=== PATIENT | male | born 1960 | race Caucasian/White ===

== ENCOUNTER 2018-05-21 15:14 | Inpatient (IN) | payer OTHER ==
[~2018-05-21] VITALS: Ht 152.4 cm; Wt 56.7 kg
[2018-05-21 15:23] VITALS: BP 128/70
[2018-05-21] MEDS ORDERED: ceFAZolin 1,000 MG VIAL ONE (16:02)
[2018-05-21 16:13] LABS: BASOPHILS % (AUTO) 0.3 % (0.0-2.0); EOSINOPHILS # (AUTO) 0.2 K/uL (0-0.4); HEMATOCRIT 35.9 % (36-52); HEMOGLOBIN 11.8 g/dL (12.0-18.0); LYMPHOCYTES # (AUTO) 0.5 K/uL (2.0-11.5); LYMPHOCYTES % (AUTO) 14.1 % (20.5-51.1); MEAN CORPUSCULAR HEMOGLOBIN 29 pg (27-31); MEAN CORPUSCULAR HGB CONC 33 g/dL (33-37); MEAN CORPUSCULAR VOLUME 89.6 fL (80-94); MONOCYTES # (AUTO) 0.3 K/uL (0.8-1.0); MONOCYTES % (AUTO) 9.6 % (1.7-9.3); NEUTROPHILS # (AUTO) 2.3 K/uL (1.8-7.7); RED CELL DISTRIBUTION WIDTH 16.8 % (11.6-13.7); WHITE BLOOD COUNT (AUTO) 3.3 K/uL (4.8-10.8)
[2018-05-21 16:32] LABS: ALBUMIN 3.1 g/dL (3.4-5.0); ANION GAP 9.3 (8-16); CREATININE 0.8 mg/dL (0.7-1.3); POTASSIUM 3.3 mmol/L (3.5-5.1); TOTAL BILIRUBIN 1.2 mg/dL (0.0-1.0)
[2018-05-21 16:34] LABS: PROTHROMBIN TIME 12.1 secs (10.8-13.4)
[2018-05-21 16:56] LABS: PLATELET COUNT (AUTO) 38 K/uL (140-450)
[2018-05-21] MEDS ORDERED: MORPHINE SULFATE 4 MG/ML SYR IVP ONE (17:10)
[2018-05-21] MEDS ORDERED: ONDANSETRON 4 MG/2 ML VIAL IVP ONE (17:10)
[2018-05-21] MEDS ORDERED: DOCUSATE SODIUM 100 MG GELCAP PO PRN (19:50)
[2018-05-21] MEDS ORDERED: ONDANSETRON 4 MG/2 ML VIAL IM/IVP PRN (19:50)
[2018-05-21] MEDS ORDERED: ACETAMINOPHEN 325 MG TAB PO PRN (19:50)
[2018-05-21 20:22] LABS: CHOL/HDL RATIO 1.8 (1-4.5); FREE T4 (FREE THYROXINE) 1.07 ng/dL (0.76-1.46); MAGNESIUM 1.5 mg/dL (1.8-2.4); PHOSPHORUS 3.8 mg/dL (2.5-4.9)
[2018-05-21 20:30] VITALS: BP 129/86
[2018-05-21] MEDS: HYDROcodone/APAP 7.5/325 MG 1 TAB PO PRN (21:29)
[2018-05-21 22:10] LABS: THYROID STIMULATING HORMONE 3.07 uIU/mL (0.34-3.74)
[2018-05-21] MEDS ORDERED: MAGNESIUM OXIDE 400 MG TAB PO ONE (23:35)
[2018-05-22] VITALS: BP 110/57
[2018-05-22] MEDS: PIPER/TAZO 3.375GM/D5W PREMIX 50 ML IV SCH ×4 (00:30→20:12)
[2018-05-22] MEDS ORDERED: PIPERACILLIN/TAZOBACTAM 3.375 GM VIAL IV ONE ×2 (00:32→04:15)
[2018-05-22] MEDS ORDERED: NACL 0.9% 500 ML IV SCH (01:05)
[2018-05-22] MEDS ORDERED: INFLUENZA VIRUS VACCINE QUAD 0.5 ML SYR IMVAC PRN (02:25)
[2018-05-22] MEDS ORDERED: PNEUMOCOCCAL VACCINE 23 MCG/0.5 ML VIAL IMVAC SCH (02:25)
[2018-05-22 04:00] VITALS: BP 104/69
[2018-05-22] MEDS: HYDROcodone/APAP 7.5/325 MG 1 TAB PO PRN ×3 (04:22→20:12)
[2018-05-22] MEDS: NACL 0.9% 1,000 ML IV SCH ×2 (06:00→20:12)
[2018-05-22 07:06] LABS: ANION GAP 10.1 (8-16); CARBON DIOXIDE 27.4 mmol/L (21-32); CREATININE 1.1 mg/dL (0.7-1.3); POTASSIUM 3.5 mmol/L (3.5-5.1)
[2018-05-22 07:31] LABS: MAGNESIUM 1.7 mg/dL (1.8-2.4); PHOSPHORUS 4.5 mg/dL (2.5-4.9)
[2018-05-22 07:44] LABS: BASOPHILS % (AUTO) 0.7 % (0.0-2.0); EOSINOPHILS # (AUTO) 0.2 K/uL (0-0.4); EOSINOPHILS % (AUTO) 6.6 % (0.0-4.0); LYMPHOCYTES # (AUTO) 0.4 K/uL (2.0-11.5); MEAN CORPUSCULAR HEMOGLOBIN 30 pg (27-31); MEAN CORPUSCULAR HGB CONC 33 g/dL (33-37); MEAN CORPUSCULAR VOLUME 90.4 fL (80-94); MONOCYTES # (AUTO) 0.5 K/uL (0.8-1.0); MONOCYTES % (AUTO) 14.4 % (1.7-9.3); NEUTROPHILS # (AUTO) 2.4 K/uL (1.8-7.7); NEUTROPHILS % (AUTO) 67.3 % (42.2-75.2); RED BLOOD CELL COUNT(AUTO) 3.32 MIL/uL (4.20-6.10); RED CELL DISTRIBUTION WIDTH 16.9 % (11.6-13.7); WHITE BLOOD COUNT (AUTO) 3.5 K/uL (4.8-10.8)
[2018-05-22 08:00] VITALS: BP 106/57
[2018-05-22 08:29] LABS: PLATELET COUNT (AUTO) 32 K/uL (140-450)
[2018-05-22] MEDS: CALCIUM CARB/VIT-D 500 MG/200 IU 1 TAB PO SCH (08:31)
[2018-05-22] MEDS: MAGNESIUM OXIDE 400 MG TAB PO SCH (08:32)
[2018-05-22] MEDS ORDERED: MAGNESIUM OXIDE 400 MG TAB PO SCH (10:00)
[2018-05-22] MEDS: MORPHINE SULFATE 4 MG/ML SYR IVP PRN ×2 (10:42→20:28)
[2018-05-22 11:37] LABS: APPEARANCE,URINE HAZY (CLEAR); BILIRUBIN,URINE NEGATIVE (NEGATIVE); BLOOD, URINE 3+ (NEGATIVE); LEUKOCYTE ESTERASE ,URINE 2+ (NEGATIVE); NITRITE, URINE NEGATIVE (NEGATIVE); UGLUCOSE NEGATIVE (NEGATIVE)
[2018-05-22 11:39] LABS: COLOR,URINE AMBER (YELLOW)
[2018-05-22 11:47] LABS: BARBITURATE, URINE NEGATIVE ng/ml (NEG <=200); CANNABINOID, URINE NEGATIVE ng/mL (NEG <=50); COCAINE, URINE NEGATIVE ng/mL (NEG <=300); PHENCYCLIDINE SCREEN,URINE NEGATIVE ng/mL (NEG <=25); RBC,URINE 20-50 /HPF (0-5); WBC,URINE 20-60 /HPF (0-5)
[2018-05-22 11:51] LABS: BENZODIAZEPINE, URINE NEGATIVE ng/mL (NEG <=200); OPIATE, URINE POSITIVE ng/mL (NEG <=2000)
[2018-05-22 12:00] VITALS: BP 112/58
[2018-05-22] MEDS: NACL 0.9% IRR 250 ML BOTTLE IR SCH (12:29)
[2018-05-22 16:00] VITALS: BP 103/48
[2018-05-22] MEDS ORDERED: ALBUTEROL SULFATE/IPRATROPIU 3 ML SOL IH PRN ×2 (17:10→18:10)
[2018-05-22] MEDS: ALBUTEROL SULFATE/IPRATROPIU 3 ML SOL IH SCH (18:56)
[2018-05-22] MEDS ORDERED: ALBUTEROL SULFATE/IPRATROPIU 3 ML SOL IH SCH (19:00)
[2018-05-22 20:00] VITALS: BP 119/61
[2018-05-23] VITALS: BP 115/60
[2018-05-23] MEDS: ALBUTEROL SULFATE/IPRATROPIU 3 ML SOL IH SCH ×4 (01:57→19:17)
[2018-05-23 04:00] VITALS: BP 108/80
[2018-05-23] MEDS: PIPER/TAZO 3.375GM/D5W PREMIX 50 ML IV SCH ×3 (04:22→20:18)
[2018-05-23] MEDS: MORPHINE SULFATE 4 MG/ML SYR IVP PRN (04:23)
[2018-05-23] MEDS: NACL 0.9% 1,000 ML IV SCH (04:23)
[2018-05-23 06:21] LABS: T4 (THYROXINE) 7.8 ug/dL (4.5-12.0)
[2018-05-23 07:22] LABS: HEPATITIS A ANTIBODY IGM Negative (Negative); HEPATITIS B CORE AB TOTAL Negative (Negative); HEPATITIS B SURFACE ANTIBODY Non Reactive (.); HEPATITIS B SURFACE ANTIGEN Negative (Negative)
[2018-05-23 07:59] LABS: EOSINOPHILS # (AUTO) 0.2 K/uL (0-0.4)
[2018-05-23 08:00] VITALS: BP 133/73
[2018-05-23 08:16] LABS: HEMOGLOBIN 9.7 g/dL (12.0-18.0); LYMPHOCYTES # (AUTO) 0.4 K/uL (2.0-11.5); MONOCYTES # (AUTO) 0.5 K/uL (0.8-1.0); MONOCYTES % (AUTO) 13.6 % (1.7-9.3); NEUTROPHILS # (AUTO) 2.6 K/uL (1.8-7.7); RED BLOOD CELL COUNT(AUTO) 3.24 MIL/uL (4.20-6.10); WHITE BLOOD COUNT (AUTO) 3.7 K/uL (4.8-10.8)
[2018-05-23 08:20] LABS: BASOPHILS % (AUTO) 0.4 % (0.0-2.0); HEMATOCRIT 28.9 % (36-52); MEAN CORPUSCULAR HEMOGLOBIN 30 pg (27-31); MEAN CORPUSCULAR HGB CONC 34 g/dL (33-37); MEAN CORPUSCULAR VOLUME 89.2 fL (80-94); RED CELL DISTRIBUTION WIDTH 17.2 % (11.6-13.7)
[2018-05-23 08:25] LABS: PLATELET COUNT (AUTO) 40 K/uL (140-450)
[2018-05-23 08:30] LABS: ANION GAP 10.9 (8-16); CARBON DIOXIDE 25.3 mmol/L (21-32); POTASSIUM 4.2 mmol/L (3.5-5.1)
[2018-05-23] MEDS: CALCIUM CARB/VIT-D 500 MG/200 IU 1 TAB PO SCH (09:41)
[2018-05-23] MEDS: MAGNESIUM OXIDE 400 MG TAB PO SCH (09:41)
[2018-05-23] MEDS ORDERED: MUPIROCIN CA NASAL 2% 1GM TUBE NS SCH (10:30)
[2018-05-23] MEDS ORDERED: CHLORHEXADINE GLUC 2% CLOTH TP SCH (10:35)
[2018-05-23] MEDS ORDERED: MUPIROCIN 2% OINT 22 GM TUBE TP SCH (10:35)
[2018-05-23] MEDS: CHLORHEXADINE GLUC 2% CLOTH TP SCH (11:30)
[2018-05-23 16:00] VITALS: BP 162/75
[2018-05-23] MEDS: HYDROcodone/APAP 7.5/325 MG 1 TAB PO PRN (20:19)
[2018-05-24] VITALS: BP 132/71
[2018-05-24] MEDS: ALBUTEROL SULFATE/IPRATROPIU 3 ML SOL IH SCH ×4 (00:19→20:15)
[2018-05-24] MEDS: PIPER/TAZO 3.375GM/D5W PREMIX 50 ML IV SCH ×3 (04:25→21:42)
[2018-05-24] MEDS: NACL 0.9% 1,000 ML IV SCH (04:26)
[2018-05-24 07:54] VITALS: BP 139/70
[2018-05-24 08:13] LABS: HEMOGLOBIN 11.5 g/dL (12.0-18.0); RED BLOOD CELL COUNT(AUTO) 3.82 MIL/uL (4.20-6.10); WHITE BLOOD COUNT (AUTO) 3.4 K/uL (4.8-10.8)
[2018-05-24 08:14] LABS: HEMATOCRIT 34.8 % (36-52); LYMPHOCYTES % (AUTO) 11.5 % (20.5-51.1); MEAN CORPUSCULAR HEMOGLOBIN 30 pg (27-31); MEAN CORPUSCULAR HGB CONC 33 g/dL (33-37); MONOCYTES % (AUTO) 10.9 % (1.7-9.3); NEUTROPHILS % (AUTO) 72.4 % (42.2-75.2); RED CELL DISTRIBUTION WIDTH 17.1 % (11.6-13.7)
[2018-05-24 08:15] LABS: BASOPHILS % (AUTO) 0.4 % (0.0-2.0); EOSINOPHILS # (AUTO) 0.2 K/uL (0-0.4); EOSINOPHILS % (AUTO) 4.8 % (0.0-4.0); LYMPHOCYTES # (AUTO) 0.4 K/uL (2.0-11.5); MONOCYTES # (AUTO) 0.4 K/uL (0.8-1.0); NEUTROPHILS # (AUTO) 2.4 K/uL (1.8-7.7)
[2018-05-24 08:16] LABS: ANION GAP 8.2 (8-16); CARBON DIOXIDE 28.9 mmol/L (21-32); CREATININE 0.8 mg/dL (0.7-1.3); POTASSIUM 4.1 mmol/L (3.5-5.1)
[2018-05-24 08:17] LABS: PLATELET COUNT (AUTO) 44 K/uL (140-450)
[2018-05-24] MEDS: MAGNESIUM OXIDE 400 MG TAB PO SCH (09:18)
[2018-05-24] MEDS: CALCIUM CARB/VIT-D 500 MG/200 IU 1 TAB PO SCH (09:19)
[2018-05-24] MEDS: CHLORHEXADINE GLUC 2% CLOTH TP SCH (10:02)
[2018-05-24] MEDS: MUPIROCIN CA NASAL 2% 1GM TUBE NS SCH (10:02)
[2018-05-24] MEDS ORDERED: MAGNESIUM OXIDE 400 MG TAB PO SCH (14:30)
[2018-05-24] MEDS: HYDROcodone/APAP 7.5/325 MG 1 TAB PO PRN ×2 (15:22→21:45)
[2018-05-24 16:19] VITALS: BP 133/70
[2018-05-25] VITALS: BP 126/67
[2018-05-25] MEDS: PIPER/TAZO 3.375GM/D5W PREMIX 50 ML IV SCH ×2 (06:14→12:40)
[2018-05-25 07:41] LABS: BASOPHILS % (AUTO) 0.4 % (0.0-2.0); EOSINOPHILS # (AUTO) 0.4 K/uL (0-0.4); EOSINOPHILS % (AUTO) 7.7 % (0.0-4.0); HEMATOCRIT 33.4 % (36-52); HEMOGLOBIN 11.2 g/dL (12.0-18.0); LYMPHOCYTES # (AUTO) 0.4 K/uL (2.0-11.5); LYMPHOCYTES % (AUTO) 7.8 % (20.5-51.1); MEAN CORPUSCULAR HEMOGLOBIN 30 pg (27-31); MEAN CORPUSCULAR HGB CONC 33 g/dL (33-37); MEAN CORPUSCULAR VOLUME 90.4 fL (80-94); MONOCYTES # (AUTO) 0.8 K/uL (0.8-1.0); MONOCYTES % (AUTO) 13.9 % (1.7-9.3); NEUTROPHILS # (AUTO) 3.8 K/uL (1.8-7.7); NEUTROPHILS % (AUTO) 70.2 % (42.2-75.2); RED CELL DISTRIBUTION WIDTH 17.2 % (11.6-13.7); WHITE BLOOD COUNT (AUTO) 5.4 K/uL (4.8-10.8)
[2018-05-25 08:00] VITALS: BP 145/87
[2018-05-25 08:00] LABS: ANION GAP 12.4 (8-16); CARBON DIOXIDE 25.9 mmol/L (21-32); CREATININE 0.8 mg/dL (0.7-1.3); POTASSIUM 4.3 mmol/L (3.5-5.1)
[2018-05-25 09:39] LABS: PLATELET COUNT (AUTO) 45 K/uL (140-450)
[2018-05-25] MEDS: MUPIROCIN CA NASAL 2% 1GM TUBE NS SCH (09:47)
[2018-05-25] MEDS: CALCIUM CARB/VIT-D 500 MG/200 IU 1 TAB PO SCH (09:48)
[2018-05-25] MEDS: MAGNESIUM OXIDE 400 MG TAB PO SCH (09:48)
[2018-05-25] MEDS: ALBUTEROL SULFATE/IPRATROPIU 3 ML SOL IH SCH ×4 (09:50→20:04)
[2018-05-25] MEDS: CHLORHEXADINE GLUC 2% CLOTH TP SCH (10:30)
[2018-05-25] MEDS: NACL 0.9% 1,000 ML IV SCH (11:05)
[2018-05-25] MEDS: NACL 0.9% IRR 250 ML BOTTLE IR SCH (13:00)
[2018-05-25] MEDS: HYDROcodone/APAP 7.5/325 MG 1 TAB PO PRN (14:12)
[2018-05-25] MEDS ORDERED: BACTNA NS (15:01)
[2018-05-25] MEDS ORDERED: ACET-9529 PO (15:01)
[2018-05-25] MEDS ORDERED: CHLO118S2 TP (15:01)
[2018-05-25] MEDS ORDERED: PIPE1PDS20 IV (15:01)
[2018-05-25] MEDS ORDERED: ALBU0.0912 INH (15:02)
[2018-05-25] MEDS ORDERED: DOCU-299 PO (15:03)
[2018-05-25] MEDS ORDERED: VANC1PLA7 IV (15:43)
[2018-05-25] MEDS ORDERED: VANCOMYCIN PER PHARMACY MC PRN (15:45)
[2018-05-25 16:00] VITALS: BP 137/88
[2018-05-25] MEDS: VANCOMYCIN 750 MG in DEXTROSE 5% 250 ML IV SCH (17:43)
[2018-05-26] VITALS: BP 114/57
[2018-05-26] MEDS: ALBUTEROL SULFATE/IPRATROPIU 3 ML SOL IH SCH ×3 (01:00→13:10)
[2018-05-26] MEDS: VANCOMYCIN 750 MG in DEXTROSE 5% 250 ML IV SCH (04:41)
[2018-05-26] MEDS: NACL 0.9% 1,000 ML IV SCH (04:42)
[2018-05-26 08:00] VITALS: BP 143/85
[2018-05-26] MEDS: MAGNESIUM OXIDE 400 MG TAB PO SCH (09:33)
[2018-05-26] MEDS: CALCIUM CARB/VIT-D 500 MG/200 IU 1 TAB PO SCH (09:33)
[2018-05-26] MEDS: MUPIROCIN CA NASAL 2% 1GM TUBE NS SCH (09:47)
[2018-05-26] MEDS: CHLORHEXADINE GLUC 2% CLOTH TP SCH (10:30)
[2018-05-26 11:12] LABS: BASOPHILS % (AUTO) 0.4 % (0.0-2.0); EOSINOPHILS # (AUTO) 0.2 K/uL (0-0.4); EOSINOPHILS % (AUTO) 5.8 % (0.0-4.0); HEMATOCRIT 30.9 % (36-52); HEMOGLOBIN 10.2 g/dL (12.0-18.0); LYMPHOCYTES # (AUTO) 0.4 K/uL (2.0-11.5); LYMPHOCYTES % (AUTO) 12.1 % (20.5-51.1); MEAN CORPUSCULAR HEMOGLOBIN 30 pg (27-31); MEAN CORPUSCULAR HGB CONC 33 g/dL (33-37); MEAN CORPUSCULAR VOLUME 90.2 fL (80-94); MONOCYTES # (AUTO) 0.6 K/uL (0.8-1.0); MONOCYTES % (AUTO) 16.7 % (1.7-9.3); NEUTROPHILS # (AUTO) 2.4 K/uL (1.8-7.7); PLATELET COUNT (AUTO) 26 K/uL (140-450); RED BLOOD CELL COUNT(AUTO) 3.42 MIL/uL (4.20-6.10); RED CELL DISTRIBUTION WIDTH 17.4 % (11.6-13.7); WHITE BLOOD COUNT (AUTO) 3.7 K/uL (4.8-10.8)
[2018-05-26 11:24] LABS: ANION GAP 11.2 (8-16); CARBON DIOXIDE 25.6 mmol/L (21-32); CREATININE 0.7 mg/dL (0.7-1.3); POTASSIUM 3.8 mmol/L (3.5-5.1)
[2018-05-26] MEDS ORDERED: LIDOCAINE 1% 500 MG/50 ML VIAL INJ SCH (11:57)
[2018-05-26] MEDS: HYDROcodone/APAP 7.5/325 MG 1 TAB PO PRN (12:01)
[2018-05-26] MEDS ORDERED: LIDOCAINE MPF 1% - 5 mL VIAL 5 ML ONE (12:18)
[2018-05-26] MEDS: MORPHINE SULFATE 4 MG/ML SYR IVP PRN (12:30)
[2018-05-26] MEDS ORDERED: MORPHINE SULFATE 4 MG/ML SYR IVP SCH (13:00)
[2018-05-26] MEDS ORDERED: VANC750P9 IV (13:55)
== END 2018-05-26 16:10 | DRG 710 ==
LOC: MED 15:14 → MTU 19:52
PROVIDERS: ADMIT General Practice; ATTEND General Practice
PROC: 3E0234Z Introduction of Serum, Toxoid and Vaccine into Muscle, Percutaneous Approach (ICD-10-PCS; 2018-05-21)
PROC: 3E02340 Introduction of Influenza Vaccine into Muscle, Percutaneous Approach (ICD-10-PCS; 2018-05-22)
PROC: 0JDN0ZZ Extraction of Right Lower Leg Subcutaneous Tissue and Fascia, Open Approach (ICD-10-PCS; principal; 2018-05-26)
DX: A41.9 Sepsis, unspecified organism (principal); N17.0 Acute kidney failure with tubular necrosis; D61.818 Other pancytopenia; E44.0 Moderate protein-calorie malnutrition; E83.42 Hypomagnesemia; L03.115 Cellulitis of right lower limb; E83.51 Hypocalcemia; L97.919 Non-pressure chronic ulcer of unspecified part of right lower leg with unspecified severity; J44.9 Chronic obstructive pulmonary disease, unspecified; E78.2 Mixed hyperlipidemia; N12 Tubulo-interstitial nephritis, not specified as acute or chronic; F15.10 Other stimulant abuse, uncomplicated; Q78.0 Osteogenesis imperfecta; Z23 Encounter for immunization; Z90.49 Acquired absence of other specified parts of digestive tract; Z68.24 Body mass index [BMI] 24.0-24.9, adult; K74.60 Unspecified cirrhosis of liver
CPT/HCPCS: 36415; 71045; 71250; 73590; 74018; 80048; 80053; 80305; 81001; 82150; 83036; 83605; 83690; 83735; 83880; 84100; 84436; 84439; 84443; 84479; 85025; 85610; 85730; 86704; 86706; 86708; 86709; 86803; 87040; 87070; 87081; 87186; 87340; 90471; 90658; 90715; 93005; 94640; 96365; 96375; 97116; 97530; 99285; J0690; J2001; J2270; J2405; J2543; J3370; J7030; J7060; J7620; Q0092

== ENCOUNTER 2018-06-17 16:26 | Inpatient (IN) | payer OTHER ==
[~2018-06-17] VITALS: Ht 152.4 cm; Wt 61.7 kg
[~2018-06-17 16:26] MED LIST: ACET-9529 PO; ALBU0.0912 INH; BACTNA NS; CHLO118S2 TP; DOCU-299 PO; VANC750P9 IV
[2018-06-17 16:35] VITALS: BP 135/65
[2018-06-17] MEDS ORDERED: ACETAMINOPHEN EXTRA STRENGTH 500 MG TAB ONE (16:47)
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
[2018-06-17] MEDS ORDERED: ACETAMINOPHEN 325 MG TAB PO ONE (17:10)
[2018-06-17] MEDS ORDERED: VANCOMYCIN 1,000 MG in DEXTROSE 5% 250 ML IV ONE (17:10)
[2018-06-17] MEDS ORDERED: NACL 0.9% 1,000 ML IV ONE (17:10)
[2018-06-17 17:18] LABS: MEAN CORPUSCULAR HEMOGLOBIN 28 pg (27-31); MEAN CORPUSCULAR HGB CONC 32 g/dL (33-37); MEAN CORPUSCULAR VOLUME 86.8 fL (80-94); PLATELET COUNT (AUTO) 59 K/uL (140-450); RED BLOOD CELL COUNT(AUTO) 3.92 MIL/uL (4.20-6.10); RED CELL DISTRIBUTION WIDTH 16.4 % (11.6-13.7); WHITE BLOOD COUNT (AUTO) 11.4 K/uL (4.8-10.8)
--- NOTE | 2018-06-17 17:24 | NUR ---
pt requesting pain medication; awaiting new orders; nad; will continue to monitor.
[2018-06-17 17:32] LABS: PROTHROMBIN TIME 12.9 secs (10.8-13.4)
[2018-06-17 17:35] LABS: ANION GAP 11.5 (8-16); CARBON DIOXIDE 27.8 mmol/L (21-32); POTASSIUM 4.3 mmol/L (3.5-5.1)
[2018-06-17] MEDS ORDERED: fentaNYL 0.05 MG/ML VIAL IVP ONE (17:35)
[2018-06-17 17:36] LABS: ALBUMIN 2.7 g/dL (3.4-5.0); CREATININE 0.9 mg/dL (0.7-1.3); TOTAL BILIRUBIN 1.3 mg/dL (0.0-1.0)
[2018-06-17] MEDS ORDERED: VANCOMYCIN 1,000 MG VIAL ONE (17:40)
[2018-06-17 17:42] LABS: EOSINOPHILS % (MANUAL) 1 % (0-4); MONOCYTES % (MANUAL) 5 % (5-12)
--- NOTE | 2018-06-17 18:05 | NUR ---
Oxygen applied at 2 L per minute via nasal cannula. 02 saturation 96% by pulse oximetry.
--- NOTE | 2018-06-17 19:09 | NUR ---
ASSUMED CARE OF PT FROM HOLDEN TEJEDA
--- NOTE | 2018-06-17 19:09 | NUR ---
Pt report given to Luis Carlos HATCH. Transfer of care at this time.
[2018-06-17] MEDS ORDERED: PIPERACILLIN/TAZOBACTAM 3.375 GM in DEXTROSE 5% 50 ML IV ONE (19:15)
[2018-06-17] MEDS ORDERED: NACL 0.9% 1,750 ML IV ONE (19:15)
[2018-06-17] MEDS ORDERED: PIPERACILLIN/TAZOBACTAM 3.375 GM VIAL IV ONE (19:36)
--- NOTE | 2018-06-17 20:25 | NUR ---
SPOKE TO ARCELIA [place] ALFRED, INFORMED SHE WOULD CALL BACK WITH STATUS OF ADMISSION
[2018-06-17] MEDS ORDERED: ACETAMINOPHEN EXTRA STRENGTH 500 MG TAB PO ONE (20:45)
[2018-06-17] MEDS ORDERED: MORPHINE SULFATE 4 MG/ML SYR IVP PRN (20:50)
[2018-06-17] MEDS ORDERED: DOCUSATE SODIUM 100 MG GELCAP PO PRN (20:50)
[2018-06-17] MEDS ORDERED: LORazepam 2 MG/ML VIAL IM/IVP PRN (20:50)
[2018-06-17] MEDS ORDERED: ZOLPIDEM 5 MG TAB PO PRN (20:50)
[2018-06-17] MEDS ORDERED: HYDROcodone/APAP 5/325 MG 1 TAB TAB PO PRN (20:50)
--- NOTE | 2018-06-17 21:11 | NUR ---
Pt transferred to Tele via BED 115.
[2018-06-17 21:15] VITALS: BP 85/45
--- NOTE | 2018-06-17 21:15 | NUR ---
RECEIVED REPORT FROM ER NURSE AT BEDSIDE FOR CONTINUITY OF CARE. PT AAOX4. PT IV NOTED VAHID 20G NS WIDE OPEN. NO SOB NO S/S OF DISTRESS ON 2L NC. BED LOWERED PT ORIENTED TO ROOM. ON CONTACT PRECAUTIONS HX: MRSA OF THE WOUND. PT SKIN IS NOT INTACT D/T LLE CELLULITIS OPEN WOUND PICTURE IN CHART.
--- NOTE | 2018-06-17 21:27 | NUR ---
Patient will be admitted to care of DR BATISTA. Admited to TELE. Will go to [id number]. Belongings list completed. Report to HOLDEN DOWELL.
[2018-06-17 21:53] LABS: CHOL/HDL RATIO 2.1 (1-4.5); FREE T4 (FREE THYROXINE) 1.03 ng/dL (0.76-1.46); MAGNESIUM 1.5 mg/dL (1.8-2.4); PHOSPHORUS 2.4 mg/dL (2.5-4.9); THYROID STIMULATING HORMONE 1.59 uIU/mL (0.34-3.74)
[2018-06-17] MEDS: NACL 0.9% 1,000 ML IV SCH (22:14)
[2018-06-18] VITALS: BP 100/67
[2018-06-18] MEDS: TAMSULOSIN 0.4 MG CAP PO SCH ×2 (02:40→09:15)
[2018-06-18 04:00] VITALS: BP 105/69
[2018-06-18] MEDS: NACL 0.9% 1,000 ML IV SCH ×2 (05:28→12:14)
[2018-06-18] MEDS: PIPER/TAZO 3.375GM/D5W PREMIX 50 ML IV SCH ×3 (05:28→20:15)
[2018-06-18] MEDS ORDERED: PIPERACILLIN/TAZOBACTAM 3.375 GM VIAL IV ONE (05:29)
[2018-06-18] MEDS ORDERED: VANCOMYCIN PER PHARMACY MC PRN (05:35)
[2018-06-18] MEDS: SODIUM PHOS / POTASSIUM PHOS 1 PKT PDR PO SCH ×3 (06:14→16:30)
[2018-06-18] MEDS: ONDANSETRON 4 MG/2 ML VIAL IM/IVP PRN (06:15)
[2018-06-18 06:18] LABS: BASOPHILS % (AUTO) 0.1 % (0.0-2.0); EOSINOPHILS % (AUTO) 0.1 % (0.0-4.0); HEMATOCRIT 28.5 % (36-52); HEMOGLOBIN 9.4 g/dL (12.0-18.0); LYMPHOCYTES # (AUTO) 0.2 K/uL (2.0-11.5); MEAN CORPUSCULAR HEMOGLOBIN 29 pg (27-31); MEAN CORPUSCULAR HGB CONC 33 g/dL (33-37); MEAN CORPUSCULAR VOLUME 87.3 fL (80-94); MONOCYTES # (AUTO) 0.4 K/uL (0.8-1.0); MONOCYTES % (AUTO) 4.7 % (1.7-9.3); NEUTROPHILS # (AUTO) 7.6 K/uL (1.8-7.7); NEUTROPHILS % (AUTO) 93.1 % (42.2-75.2); RED BLOOD CELL COUNT(AUTO) 3.26 MIL/uL (4.20-6.10); RED CELL DISTRIBUTION WIDTH 16.2 % (11.6-13.7); WHITE BLOOD COUNT (AUTO) 8.2 K/uL (4.8-10.8)
--- NOTE | 2018-06-18 07:15 | NUR ---
RECEIVED REPORT FROM AIRCRAFT WORKER NURSE AT BEDSIDE. PT SLEEPING, ROUSED BY NAME, OX4. IV NOTED VAHID 20G PATENT AND INTACT, RUNNING NS AT 130ML/HR. NO SOB NO S/S OF DISTRESS NOTED ON 2L O2 NC. BED IN LOWEST POSITION. ON CONTACT PRECAUTIONS HX: MRSA OF THE WOUND. RLE CELLULITIS OPEN WOUND, DRESSING INTACT AND DRY. ON TELE. WILL CONTINUE TO MONITOR.
--- NOTE | 2018-06-18 07:15 | NUR ---
ENDORSED REPORT TO DAYSHIFT NURSE AT BEDSIDE FOR CONTINUITY CARE.
[2018-06-18 07:45] LABS: PLATELET COUNT (AUTO) 60 K/uL (140-450)
[2018-06-18 08:00] VITALS: BP 119/64
[2018-06-18 08:20] LABS: APPEARANCE,URINE CLOUDY (CLEAR); COLOR,URINE YELLOW (YELLOW)
[2018-06-18 08:22] LABS: BILIRUBIN,URINE NEGATIVE (NEGATIVE); BLOOD, URINE 3+ (NEGATIVE); LEUKOCYTE ESTERASE ,URINE 3+ (NEGATIVE); NITRITE, URINE NEGATIVE (NEGATIVE); UGLUCOSE NEGATIVE (NEGATIVE)
--- NOTE | 2018-06-18 08:27 | NUR ---
PATIENT HAS BEEN SCREENED AND CATEGORIZED HIGH NUTRITION RISK. PATIENT WILL BE SEEN WITHIN 1-2 DAYS OF ADMISSION. 06/18/18-06/19/[address]
[2018-06-18 08:40] LABS: POTASSIUM 4.3 mmol/L (3.5-5.1)
[2018-06-18 08:41] LABS: ANION GAP 10.2 (8-16); CARBON DIOXIDE 27.1 mmol/L (21-32); CREATININE 0.9 mg/dL (0.7-1.3); MAGNESIUM 1.5 mg/dL (1.8-2.4); PHOSPHORUS 3.9 mg/dL (2.5-4.9)
[2018-06-18 08:53] LABS: RBC,URINE 11-20 (MOD) /HPF (0-5); WBC,URINE 80-100 /HPF (0-5)
[2018-06-18 08:55] LABS: YEAST,URINE Moderate /HPF (None Seen)
[2018-06-18] MEDS ORDERED: MAGNESIUM OXIDE 400 MG TAB PO SCH (09:00)
[2018-06-18] MEDS: LACTOBACILLUS RHAMNOSUS GG 1 EACH CAP PO SCH (09:14)
[2018-06-18] MEDS: MORPHINE SULFATE 4 MG/ML SYR IVP PRN ×3 (09:16→17:25)
[2018-06-18] MEDS ORDERED: MAG SULF 2000 MG/WATER PREMIX 50 ML IV SCH (09:30)
[2018-06-18 09:33] LABS: BARBITURATE, URINE NEGATIVE ng/ml (NEG <=200); BENZODIAZEPINE, URINE NEGATIVE ng/mL (NEG <=200); CANNABINOID, URINE NEGATIVE ng/mL (NEG <=50); COCAINE, URINE NEGATIVE ng/mL (NEG <=300); OPIATE, URINE NEGATIVE ng/mL (NEG <=2000); PHENCYCLIDINE SCREEN,URINE NEGATIVE ng/mL (NEG <=25)
--- NOTE | 2018-06-18 12:49 | NUR ---
06/18/18 RD INITIAL ASSESSMENT COMPLETED PLEASE REFER TO NUTRITION ASSESSMENT UNDER CARE ACTIVITY FOR ESTIMATED NUTRITIONAL NEEDS. 1. RECOMMEND MECHANICAL SOFT DIET 2. RECOMMEND VITAMIN C 1000 MG BID AND ZINC 220 MG QD TO AID IN WOUND HEALING 3. RECOMMEND ENSURE BID TO AID IN MALNUTRITION 4. RD TO FOLLOW UP ON ADEQUATE PO INTAKE 5. RD TO FOLLOW-UP 3-5 DAYS, MODERATE RISK LIZZIE SANFORD, RD
[2018-06-18] MEDS: ACETAMINOPHEN 325 MG TAB PO PRN (12:56)
--- NOTE | 2018-06-18 13:10 | NUR ---
TEMP CHECKED 100.6, PT EATING LUNCH, APPEARS TO BE TACHYPNEA 30/MIN. GIVEN TYLENOL AND ICE PACK TO NECK. CHECKED PT'S O2 SAT 92% ON 2L O2 NC. INCREASED TO 3L. HOB 45 DEG.
--- NOTE | 2018-06-18 13:18 | NUR ---
NOTIFIED DR PIKE AND DR MAXWELL HAS SEEN PT. RT ORDERS PLACED. CALLED RT JAMESON. VITALS BP 123/70, HR 120, 96%, MORPHINE GIVEN FOR BACK PAIN.
--- NOTE | 2018-06-18 13:45 | NUR ---
PLACED PT BACK ON TELE MONITORING. WILL CONTINUE TO MONITOR.
[2018-06-18] MEDS ORDERED: ALBUTEROL SULFATE/IPRATROPIU 3 ML SOL IH ONE (13:54)
[2018-06-18] MEDS ORDERED: FUROSEMIDE 20 MG/2 ML VIAL IVP SCH (14:00)
--- NOTE | 2018-06-18 14:00 | NUR ---
WOUND CARE EVALUATION NOTE: REASON FOR EVALUATION: RLE WOUND SKIN ASSESSMENT DONE WITH THIS 58Y/O MALE PT ADMITTED TO [facility] WITH INITIAL DX OF SEPSIS.PT. SKIN IS WARM AND DRY, BLE NO HAIR GROWTH, +1 EDEMA TO RIGHT LOWER LEG. BILATERAL DORSAL PEDAL PULSES PRESENT AND NORMAL. CAPILLARY REFILLED < 2 SEC. X 10 TOES. PLAN OF CARE DISCUSSED WITH PRIMARY RN AND PT. PT. VERBALIZING UNDERSTANDING. INTEGUMENTARY: -LLE DRY SKIN WITH DARK PIGMENTATION DRY AND SCALY -RLE CELLULITIS WITH ERYTHEMA AND +1 EDEMA, MULTIPLE PARTIAL THICKNESS LOSS OF SKIN, WOUND BEDS ARE SCATTERED WITH YELLOW SLOUGH, LARGEST TO HEIN AREA 3X3CM, AND SMALLEST 1.5X1 DRY BROWN SCAB, ALFRED-WOUND SKIN INTACT WITH ERYTHEMA, MODERATE AMOUNT OF PURULENT DRAINAGE, PAIN 3/10 RECOMMENDATIONS: -CLEANSE RLE CELLULITIS OPEN WOUNDS WITH NS. PAT DRY , APPLY ALGINATE DRESSING AND COVER WITH DRY DRESSING CHANGE QOD -OFFLOAD BILATERAL HEELS BY PLACING PILLOWS UNDER CALVES UNLESS OTHERWISE CONTRAINDICATED -PRESSURE REDISTRIBUTION SURFACE THERAPY -TURN AND REPOSITION Q2H, OFFLOAD SACRALCOCCYX BY TURNING RIGHT AND LEFT -CONTINUE TO FOLLOW RD RECOMMENDATIONS ALL ABOVE RECOMMENDATIONS DISCUSSED WITH PRIMARY RN AND WILL FOLLOW UP PT Q7-10 DAYS. PLEASE CONTACT WOUND CARE NURSE FOR ANY QUESTION.
[2018-06-18 16:00] VITALS: BP 108/57
[2018-06-18] MEDS: VANCOMYCIN 500 MG in DEXTROSE 5% 100 ML IV SCH (17:48)
--- NOTE | 2018-06-18 19:00 | NUR ---
PT IS ON 3L O2, O2 SAT 96%. NO S/S OF ACUTE DISTRESS NOTED. Addendum: 06/18/18 at 1946 by Efrain Miramontes RN NASAL CANNULA.
--- NOTE | 2018-06-18 19:20 | NUR ---
RECEIVED REPORT FROM DAY SHIFT NURSE, KAITY, AT PT BEDSIDE. PT IS ASLEEP IN BED, EASILY AROUSABLE. PT IS ON NC 3L WITH RESPIRATIONS EVEN AND UNLABORED. IV ACCESS IN VAHID 20G WITH IVF RUNNING PER MD ORDERS. IV IS PATENT AND INTACT. PT SKIN IS INTACT. NO C/O PAIN AT THIS TIME. BED IS LOCKED, LOW POSITION, WITH SIDE RAILS UP X2. BOARD UPDATED. CALL LIGHT WITHIN REACH. WILL CONTINUE TO MONITOR PT. Addendum: 06/18/18 at 2039 by Lorraine Willams RN RLE CELLULITIS RLE WITH DRESSING INTACT AND DRY.
--- NOTE | 2018-06-18 19:20 | NUR ---
ENDORSED REPORT TO LAYER OFF NURSE AT BEDSIDE FOR CONTINUITY CARE.
[2018-06-18 20:00] VITALS: BP 118/75
--- NOTE | 2018-06-18 20:09 | NUR ---
RT AT PT BEDSIDE.
[2018-06-18] MEDS: ASCORBIC ACID 500 MG TAB PO SCH (20:15)
--- NOTE | 2018-06-18 20:16 | NUR ---
ADMINISTERED SCHEDULED MEDICATIONS. PT TOLERATED WELL. NO SIGNS OR SYMPTOMS OF DISTRESS. WILL CONTINUE TO MONITOR.
--- NOTE | 2018-06-18 21:55 | NUR ---
CALLED DR. ELIZALDE TO REPORT LAB RESULTS OF LEG CULTURE POSITIVE FOR STREPTOCOCCUS PYOGENES GRP A.
[2018-06-19] VITALS (7 sets, daily range): BP systolic 117–144; BP diastolic 51–79
--- NOTE | 2018-06-19 00:10 | NUR ---
PT ASLEEP IN BED. NO SIGNS OR SYMPTOMS OF DISTRESS. WILL CONTINUE TO MONITOR.
[2018-06-19] MEDS: ACETAMINOPHEN 325 MG TAB PO PRN (01:26)
--- NOTE | 2018-06-19 01:27 | NUR ---
TYLENOL GIVEN FOR TEMPERATURE OF 101.6. PT TOLERATED WELL. NO SIGNS OR SYMPTOMS OF DISTRESS. WILL CONTINUE TO MONITOR.
[2018-06-19] MEDS: ONDANSETRON 4 MG/2 ML VIAL IM/IVP PRN (01:34)
--- NOTE | 2018-06-19 01:34 | NUR ---
PT C/O NAUSEA. ZOFRAN GIVEN. PT TOLERATED WELL. NO S/S OF DISTRESS. WILL CONTINUE TO MONITOR.
[2018-06-19] MEDS ORDERED: DILTIAZEM 25 MG/5 ML VIAL IVP ONE ×2 (02:20→20:15)
--- NOTE | 2018-06-19 02:20 | NUR ---
PT TEMPERATURE NOW 100.5. INFORMED DR ELIZALDE OF PT HR 130-150. ORDERS TO COME.
--- NOTE | 2018-06-19 02:40 | NUR ---
ADMINISTERED ORDERED DILTIAZEM. ASSISTED PT UP TO RESTROOM. PT TOLERATED WELL. NO SIGNS OR SYMPTOMS OF DISTRESS. WILL CONTINUE TO MONITOR.
[2018-06-19] MEDS: NACL 0.9% 1,000 ML IV SCH ×2 (03:04→10:16)
[2018-06-19] MEDS: PIPER/TAZO 3.375GM/D5W PREMIX 50 ML IV SCH ×2 (05:09→12:52)
--- NOTE | 2018-06-19 05:09 | NUR ---
ADMINISTERED SCHEDULED MEDICATION. PT SLEEPING IN BED COMFORTABLY. TEMPERATURE IS 98.6. NO SIGNS OR SYMPTOMS OF DISTRESS. WILL CONTINUE TO MONITOR.
[2018-06-19] MEDS: SODIUM PHOS / POTASSIUM PHOS 1 PKT PDR PO SCH ×2 (06:37→12:52)
[2018-06-19] MEDS: VANCOMYCIN 500 MG in DEXTROSE 5% 100 ML IV SCH ×2 (06:37→18:03)
--- NOTE | 2018-06-19 06:37 | NUR ---
ADMINISTERED SCHEDULED MEDICATIONS PT TOLERATED WELL. NO S/S OF DISTRESS. WILL CONTINUE TO MONITOR.
--- NOTE | 2018-06-19 07:06 | NUR ---
ENDORSED PT TO DAY SHIFT NURSE FOR CONTINUITY OF CARE. PT IN STABLE CONDITION.
--- NOTE | 2018-06-19 07:10 | NUR ---
RECEIVED REPORT FROM PATIENT ACCESS NURSE AT BEDSIDE. PT SLEEPING, ROUSED BY NAME, OX4. IV NOTED VAHID 20G PATENT AND INTACT, RUNNING NS AT 60ML/HR. NO S/S OF DISTRESS NOTED ON 2L O2 NC. RR 20/MIN. BED IN LOWEST POSITION. ON CONTACT PRECAUTIONS POSITIVE BLOOD CULTURE AND POSITIVE WOUND CULTURE. RLE CELLULITIS OPEN WOUND, DRESSING INTACT AND DRY. ON TELE. CALL LIGHT WITHIN REACH. WILL CONTINUE TO MONITOR.
[2018-06-19 07:13] LABS: BASOPHILS % (AUTO) 0.4 % (0.0-2.0); EOSINOPHILS # (AUTO) 0.1 K/uL (0-0.4); EOSINOPHILS % (AUTO) 3.6 % (0.0-4.0); HEMATOCRIT 24.2 % (36-52); LYMPHOCYTES # (AUTO) 0.3 K/uL (2.0-11.5); LYMPHOCYTES % (AUTO) 8.5 % (20.5-51.1); MEAN CORPUSCULAR HEMOGLOBIN 28 pg (27-31); MEAN CORPUSCULAR HGB CONC 33 g/dL (33-37); MEAN CORPUSCULAR VOLUME 85.9 fL (80-94); MONOCYTES # (AUTO) 0.5 K/uL (0.8-1.0); MONOCYTES % (AUTO) 12.1 % (1.7-9.3); NEUTROPHILS # (AUTO) 3.1 K/uL (1.8-7.7); NEUTROPHILS % (AUTO) 75.4 % (42.2-75.2); PLATELET COUNT (AUTO) 32 K/uL (140-450); RED BLOOD CELL COUNT(AUTO) 2.81 MIL/uL (4.20-6.10); RED CELL DISTRIBUTION WIDTH 16.2 % (11.6-13.7); WHITE BLOOD COUNT (AUTO) 4.1 K/uL (4.8-10.8)
--- NOTE | 2018-06-19 08:00 | NUR ---
O2 SAT 95%, DECREASED O2 TO 2L VIA NC. NO S/S OF ACUTE DISTRESS AT THIS TIME.
[2018-06-19] MEDS: ZINC SULF 220 MG CAP PO SCH (09:34)
[2018-06-19] MEDS: LACTOBACILLUS RHAMNOSUS GG 1 EACH CAP PO SCH (09:34)
[2018-06-19] MEDS: TAMSULOSIN 0.4 MG CAP PO SCH (09:34)
[2018-06-19] MEDS: ASCORBIC ACID 500 MG TAB PO SCH ×2 (09:34→21:25)
[2018-06-19 10:08] LABS: ANION GAP 7.3 (8-16); CARBON DIOXIDE 26.3 mmol/L (21-32); POTASSIUM 3.6 mmol/L (3.5-5.1)
--- NOTE | 2018-06-19 12:26 | NUR ---
Order for SNF placement faxed to [facility] [phone]. Left a message for Portia [phone] to call me back.
--- NOTE | 2018-06-19 12:30 | NUR ---
Wound care eval notes faxed to [facility]) [phone]. Pt eval still pending.
--- NOTE | 2018-06-19 12:30 | NUR ---
PT EATING LUNCH, MIN ASSISTANCE PROVIDED. NO S/S OF ACUTE DISTRESS AT THIS TIME.
[2018-06-19] MEDS: MORPHINE SULFATE 4 MG/ML SYR IVP PRN ×2 (13:07→21:34)
--- NOTE | 2018-06-19 13:08 | NUR ---
Spoke with Portia from [facility] for SNF placement. Faxed to [facility] for SNF placement.
--- NOTE | 2018-06-19 15:28 | NUR ---
Complex Case Manager Note: I faxed inquiry to [facility]. Per Mena from [facility], they need final micro results. Per case sealer Jessica, final micro results are pending at this time. Mena stated she will follow up with JOSELO Tran tomorrow 06/20/18.
--- NOTE | 2018-06-19 15:30 | NUR ---
Faxed to [facility] [phone] PT. joe. Spoke with Portia from [facility] [phone], [facility] is contracted with [facility]. Wound cultures still pending. Once results are received, RIOS Tran will follow up with [facility] for placement.
--- NOTE | 2018-06-19 15:43 | NUR ---
Per Portia from [facility],their weekend casework manager can be contacted [phone]. Will endorsed this to RIOS Tran.
--- NOTE | 2018-06-19 16:50 | NUR ---
REPORTED TO DR PIKE, PT HR 142, WILL GIVE MORPHINE FOR PAIN. DR PIKE SAID WILL INCREASE THE FREQ OF MORPHINE. Addendum: 06/19/18 at 1726 by Efrain Miramontes RN INCREASED TO Q3H
[2018-06-19] MEDS ORDERED: NITROGLYCERIN 0.4 MG TAB SL ONE (17:05)
--- NOTE | 2018-06-19 17:05 | NUR ---
REPORTED DR PIKE PT C/O ABD PAIN AND HAD DIARRHEA TODAY, BLACK LIQ STOOL. DR PIKE ASSESSED THE PT. OCCULT BLOOD WAS DONE AT BEDSIDE. Addendum: 06/19/18 at 1931 by Efrain Miramontes RN OCCULT BLOOD POSITIVE
[2018-06-19] MEDS ORDERED: MORPHINE SULFATE 4 MG/ML SYR IVP PRN (17:10)
[2018-06-19] MEDS ORDERED: LIDOCAINE VISCOUS 2% 20 ML UDC PO SCH (18:00)
[2018-06-19] MEDS ORDERED: PANTOPRAZOLE 40 MG INJ VIAL IVP SCH (18:00)
[2018-06-19] MEDS ORDERED: ALUMINUM HYD/MAG/SIMETHICONE 30 ML UDC PO SCH (18:00)
[2018-06-19] MEDS ORDERED: DICYCLOMINE HCL LIQUID 10 MG/5 ML UDC PO SCH (18:00)
[2018-06-19 18:36] LABS: HEMOGLOBIN 9.2 g/dL (12.0-18.0)
[2018-06-19] MEDS: guaiFENesin DM 200/20 MG-10 ML 10 ML UDC PO SCH ×2 (18:37→23:54)
--- NOTE | 2018-06-19 19:10 | NUR ---
ENDORSED PT TO GROUNDS SUPERVISOR RN. PT IN STABLE CONDITION.
--- NOTE | 2018-06-19 19:20 | NUR ---
RECEIVED REPORT FROM DAY SHIFT NURSE, KAITY, AT PT BEDSIDE. PT IS ASLEEP IN BED, EASILY AROUSABLE. PT IS ON NC 2L WITH RESPIRATIONS EVEN AND UNLABORED. IV ACCESS IN VAHID 20G WITH IVF RUNNING PER MD ORDERS. IV IS PATENT AND INTACT. PT HAS RLE CELLULITIS. NO C/O PAIN AT THIS TIME. BED IS LOCKED, LOW POSITION, WITH SIDE RAILS UP X2. BOARD UPDATED. CALL LIGHT WITHIN REACH. WILL CONTINUE TO MONITOR PT.
--- NOTE | 2018-06-19 20:10 | NUR ---
US BEING DONE AT PT BEDSIDE.
--- NOTE | 2018-06-19 21:26 | NUR ---
STOOL SAMPLE COLLECTED. ADMINISTERED SCHEDULED MEDICATIONS. PT TOLERATED WELL. NO SIGNS OR SYMPTOMS OF DISTRESS. WILL CONTINUE TO MONITOR.
--- NOTE | 2018-06-19 21:34 | NUR ---
PT C/O ABDOMINAL PAIN. MORPHINE GIVEN. PT TOLERATED WELL. NO SIGNS OR SYMPTOMS OF DISTRESS. WILL CONTINUE TO MONITOR.
[2018-06-19] MEDS ORDERED: cefTRIAXone 1,000 MG VIAL ONE (21:52)
[2018-06-19] MEDS ORDERED: CLINDAMYCIN 600 MG/4 ML VIAL ONE (21:56)
[2018-06-19] MEDS: FLUCONAZOLE 200 MG/NS PREMIX 100 ML IV SCH (21:56)
[2018-06-19] MEDS: CLINDAMYCIN 600 MG in DEXTROSE 5% 50 ML IV SCH (21:58)
--- NOTE | 2018-06-19 21:58 | NUR ---
ADMINISTERED ORDERED ANTIBIOTICS. PT RESTING COMFORTABLY IN BED. NO SIGNS OR SYMPTOMS OF DISTRESS. WILL CONTINUE TO MONITOR.
--- NOTE | 2018-06-19 23:54 | NUR ---
ADMINISTERED SCHEDULED MEDICATION. PT RESTING IN BED COMFORTABLY. NO SIGNS OR SYMPTOMS OF DISTRESS. WILL CONTINUE TO MONITOR.
[2018-06-20] VITALS: BP 118/75
[2018-06-20 00:46] LABS: HEMATOCRIT 23.6 % (36-52); HEMOGLOBIN 7.7 g/dL (12.0-18.0)
--- NOTE | 2018-06-20 01:58 | NUR ---
PT ASLEEP IN BED. NO SIGNS OR SYMPTOMS OF DISTRESS. WILL CONTINUE TO MONITOR.
[2018-06-20] MEDS: MORPHINE SULFATE 4 MG/ML SYR IVP PRN ×4 (02:41→20:37)
--- NOTE | 2018-06-20 02:41 | NUR ---
PT C/O PAIN, MORPHINE GIVEN. PT TOLERATED WELL. NO S/S OF DISTRESS. WILL CONTINUE TO MONITOR.
--- NOTE | 2018-06-20 03:41 | NUR ---
PT NOW ASLEEP IN BED. NO SIGNS OR SYMPTOMS OF DISTRESS. WILL CONTINUE TO MONITOR.
[2018-06-20 04:00] VITALS: BP 115/63
[2018-06-20] MEDS: guaiFENesin DM 200/20 MG-10 ML 10 ML UDC PO SCH ×3 (05:10→17:19)
[2018-06-20] MEDS: CLINDAMYCIN 600 MG in DEXTROSE 5% 50 ML IV SCH ×3 (05:10→20:36)
[2018-06-20] MEDS ORDERED: CLINDAMYCIN 600 MG/4 ML VIAL ONE (05:11)
--- NOTE | 2018-06-20 05:11 | NUR ---
ADMINISTERED SCHEDULED MEDICATIONS. PT RESTING COMFORTABLY IN BED. NO SIGNS OR SYMPTOMS OF DISTRESS. WILL CONTINUE TO MONITOR.
[2018-06-20] MEDS: NACL 0.9% 1,000 ML IV SCH (05:55)
--- NOTE | 2018-06-20 05:56 | NUR ---
NEW BAG OF IVF STARTED.
--- NOTE | 2018-06-20 07:11 | NUR ---
ENDORSED PT TO DAY SHIFT NURSE FOR CONTINUITY OF CARE. PT IN STABLE CONDITION.
[2018-06-20 07:15] LABS: FOLIC ACID 13.4 ng/mL (>3.0)
--- NOTE | 2018-06-20 07:15 | NUR ---
RECEIVED BEDSIDE REPORT FROM COMMERCIAL RELIEF DRIVER RN. PT SLEEPING IN BED, DROWSY, BUT AROUSABLE BY VOICE. AOX4, NO S/S OF DISTRESS NOTED AT THIS TIME. NO C/O PAIN OR DISCOMFORT AT THIS TIME. RLE CELLULITIS, DRESSING C/D/I. IV SITE PATENT AND ASYMPTOMATIC, INFUSING IVF PER MD ORDERS. PT ON BEDREST WITH BRP. WILL HOLD BREAKFAST UNTIL US ABDOMEN COMPLETED. ALL SAFETY PRECAUTIONS IN PLACE, WILL CONTINUE TO MONITOR.
[2018-06-20 08:00] VITALS: BP 110/69
[2018-06-20 08:08] LABS: HEMATOCRIT 21.8 % (36-52); HEMOGLOBIN 7.1 g/dL (12.0-18.0)
[2018-06-20] MEDS: TAMSULOSIN 0.4 MG CAP PO SCH (08:49)
[2018-06-20] MEDS: ASCORBIC ACID 500 MG TAB PO SCH ×2 (08:49→20:37)
[2018-06-20] MEDS: ZINC SULF 220 MG CAP PO SCH (08:49)
[2018-06-20] MEDS: LACTOBACILLUS RHAMNOSUS GG 1 EACH CAP PO SCH (08:49)
[2018-06-20] MEDS: PANTOPRAZOLE 40 MG INJ VIAL IVP SCH (08:50)
--- NOTE | 2018-06-20 09:02 | NUR ---
ADMINISTERED SCHEDULED MEDICATIONS. PT AMBULATED TO BATHROOM WITHOUT ASSIST. PT HAVING ANOTHER EPISODE OF DIARRHEA.
[2018-06-20] MEDS: ALBUTEROL SULFATE/IPRATROPIU 3 ML SOL IH PRN (10:02)
[2018-06-20 12:00] VITALS: BP 118/64
--- NOTE | 2018-06-20 13:20 | NUR ---
Fitter Up Notes: I attempted to contact Portia from [facility] at [phone]. Fernanda from [facility] [employer] Responded stating that Portia was not available. However she will be able to assist me about Patient's case. I informed Fernanda about Patient's cultures results and manager of case Daisy Schneider discussion with her 06/19/18 about Patient needed culture results and authorizations fro SNF and Transportation needed to [facility]. Per Fernanda she will be discussing case and reported that Strategy Director Anne from [facility] will be handling case and will be calling me back with SNF and Transportation Authorizations with in an hour. She tanked me for the information and ended the call.
--- NOTE | 2018-06-20 13:30 | NUR ---
Muck Boss Notes: I called [facility] admissions department at and I spoke to Zuleyka. I requested to speak to admissions watch caser, or Sandra community sports coordinator, however Zuleyka stated that no one was available but that she will have some one call me as soon as possible. I provided her with my direct contact number and ended the call.
--- NOTE | 2018-06-20 13:45 | NUR ---
Special Effects Technician Notes: Sandra [facility] call me back in reference to patient's case and my previous call. Per Sandra their facility is unable to take patient and she reported that she denied the patient as of Yesterday due to his IV medications. Per Sandra she and Mena discussed Patient's case. Per Sandra; Mena Spoke to RIOS Schneider and informed her that patient was denied and will not be accepted in their facility. I took information and thanked her for the call back.
[2018-06-20 14:26] LABS: BASOPHILS # (AUTO) 0.1 K/uL (0.00-0.22); BASOPHILS % (AUTO) 2.6 % (0.0-2.0); EOSINOPHILS # (AUTO) 0.2 K/uL (0-0.4); EOSINOPHILS % (AUTO) 5.6 % (0.0-4.0); HEMATOCRIT 21.9 % (36-52); LYMPHOCYTES # (AUTO) 0.6 K/uL (2.0-11.5); LYMPHOCYTES % (AUTO) 14.7 % (20.5-51.1); MEAN CORPUSCULAR HEMOGLOBIN 28 pg (27-31); MEAN CORPUSCULAR HGB CONC 32 g/dL (33-37); MEAN CORPUSCULAR VOLUME 88.2 fL (80-94); MONOCYTES # (AUTO) 0.4 K/uL (0.8-1.0); MONOCYTES % (AUTO) 10.3 % (1.7-9.3); NEUTROPHILS # (AUTO) 2.7 K/uL (1.8-7.7); NEUTROPHILS % (AUTO) 66.8 % (42.2-75.2); RED BLOOD CELL COUNT(AUTO) 2.48 MIL/uL (4.20-6.10); RED CELL DISTRIBUTION WIDTH 16.8 % (11.6-13.7); WHITE BLOOD COUNT (AUTO) 4.1 K/uL (4.8-10.8)
[2018-06-20] MEDS ORDERED: SODIUM FERRIC GLUCONATE 125 MG in NACL 0.9% 100 ML IV SCH (14:30)
--- NOTE | 2018-06-20 14:30 | NUR ---
Publicity Writer Notes: [facility] [employer] Chamber Technician Anne Call me back to provide me with Patient's Authorizations for SNF placement and [facility] transportation to [facility]. I informed Anne about previous conversation via telephonic call with Sandra from [facility] and their denial to accept Patient. Per Anne she will be making a note on chart and will be making both Authorizations temporary for both SNF and [facility] transport. Per Anne the Authorizations Numbers will be good for today 06/20/18 and tomorrow 06/21/18. However; when an Identified acceptant SNF is found [facility] insurance case manager or SW should call [facility] casework supervisor and inform [facility] of name and contact information of acceptant SNF. Per Anne SNF Authorization # [id number] and [facility] transportation Authorization # [id number]. I took the information, thanked her and ended the call.
[2018-06-20 14:52] LABS: CARBON DIOXIDE 24.1 mmol/L (21-32); CREATININE 0.9 mg/dL (0.7-1.3); POTASSIUM 4.1 mmol/L (3.5-5.1)
[2018-06-20 15:03] LABS: PLATELET COUNT (AUTO) 53 K/uL (140-450)
--- NOTE | 2018-06-20 15:30 | NUR ---
Community Development Worker Notes: I Faxed Patient's Clinical information and MD orders for short term placement for IV antibiotics, wound Care and Physical Therapy. Several Inquires where send via fax to Admissions/Intake department at: [facility] , [facility] , [facility] , [facility] , [facility] , [facility] , [facility] and [facility] .
[2018-06-20 16:00] VITALS: BP 105/59
--- NOTE | 2018-06-20 19:23 | NUR ---
ENDORSED POC TO FIRE WATCHER RN. PT IN STABLE CONDITION.
--- NOTE | 2018-06-20 19:24 | NUR ---
RECEIVED BEDSIDE REPORT FROM DAY SHIFT NURSE ROBINA RN, PT STABLE, NO DISTRESS NOTED, IV TO R UA 20G PATENT, INTACT, SL, PT ON 2LPM O2 VIA NC, NO SOB NOTED, PT HAS NO C/O PAIN AT THIS MOMENT, DRESSINGS INTACT, INITIAL ASSESSMENT DONE, ALL SAFETY PRECAUTION MET, CALL LIGHT WITHIN REACH, WILL CONTINUE TO MONITOR.
[2018-06-20 20:00] VITALS: BP 136/66
--- NOTE | 2018-06-20 20:37 | NUR ---
DUE MEDICATION ADMINISTERED, PT TOLERATED WELL, PT ALSO C/O PAIN, PAIN MEDICATION PER MD ORDER ADMINISTERED, CALL LIGHT WITHIN REACH, WILL CONTINUE TO MONITOR.
[2018-06-20 21:04] LABS: MAGNESIUM 1.7 mg/dL (1.8-2.4); PHOSPHORUS 2.7 mg/dL (2.5-4.9)
[2018-06-20] MEDS: FLUCONAZOLE 200 MG/NS PREMIX 100 ML IV SCH (21:47)
--- NOTE | 2018-06-20 21:47 | NUR ---
DUE MEDICATION ADMINISTERED, PT TOLERATED WELL, NO DISTRESS NOTED, CALL LIGHT WITHIN REACH, WILL CONTINUE TO MONITOR.
[2018-06-21] VITALS: BP 108/58
[2018-06-21] MEDS: guaiFENesin DM 200/20 MG-10 ML 10 ML UDC PO SCH ×4 (00:23→18:28)
[2018-06-21] MEDS: MORPHINE SULFATE 4 MG/ML SYR IVP PRN ×5 (00:23→20:47)
--- NOTE | 2018-06-21 00:23 | NUR ---
CHECKED ON PT, V/S TAKEN, WNL, PT C/O PAIN, PAIN MEDICATION GIVEN PER DR ORDER, DUE MEDICATION ALSO GIVEN, PT TOLERATED WELL, NO DISTRESS NOTED, CALL LIGHT WITHIN REACH, WILL CONTINUE TO MONITOR.
[2018-06-21] MEDS ORDERED: MAGNESIUM OXIDE 400 MG TAB PO SCH (02:00)
--- NOTE | 2018-06-21 02:45 | NUR ---
NOTIFIED DR. ELIZALDE REGARDING PT MAGNESIUM 1.7, MAGNESIUM OXIDE ORDERED, MEDICATION ADMINISTERED, PT TOLERATED WELL, NO DISTRESS NOTED, CALL LIGHT WITHIN REACH, WILL CONTINUE TO MONITOR.
[2018-06-21 04:00] VITALS: BP 120/63
[2018-06-21] MEDS: CLINDAMYCIN 600 MG in DEXTROSE 5% 50 ML IV SCH (05:01)
--- NOTE | 2018-06-21 05:04 | NUR ---
PT C/O PAIN, PAIN MEDICATION PER MD ORDER ADMINISTERED, DUE MEDICATION ADMINISTERED, PT TOLERATED WELL, NO DISTRESS NOTED, CALL LIGHT ON, WILL CONTINUE TO MONITOR.
[2018-06-21 06:45] LABS: BASOPHILS % (AUTO) 0.3 % (0.0-2.0); EOSINOPHILS # (AUTO) 0.3 K/uL (0-0.4); EOSINOPHILS % (AUTO) 5.6 % (0.0-4.0); HEMOGLOBIN 7.2 g/dL (12.0-18.0); LYMPHOCYTES # (AUTO) 0.6 K/uL (2.0-11.5); LYMPHOCYTES % (AUTO) 12.4 % (20.5-51.1); MEAN CORPUSCULAR HEMOGLOBIN 29 pg (27-31); MEAN CORPUSCULAR HGB CONC 33 g/dL (33-37); MEAN CORPUSCULAR VOLUME 86.4 fL (80-94); MONOCYTES # (AUTO) 0.5 K/uL (0.8-1.0); MONOCYTES % (AUTO) 10.9 % (1.7-9.3); NEUTROPHILS # (AUTO) 3.4 K/uL (1.8-7.7); NEUTROPHILS % (AUTO) 70.8 % (42.2-75.2); PLATELET COUNT (AUTO) 32 K/uL (140-450); RED BLOOD CELL COUNT(AUTO) 2.54 MIL/uL (4.20-6.10); RED CELL DISTRIBUTION WIDTH 16.5 % (11.6-13.7); WHITE BLOOD COUNT (AUTO) 4.9 K/uL (4.8-10.8)
--- NOTE | 2018-06-21 07:21 | NUR ---
ENDORSED PT TO DAY SHIFT NURSE ROBINA RN, PT STABLE, NO DISTRESS NOTED, CALL LIGHT WITHIN REACH.
--- NOTE | 2018-06-21 07:25 | NUR ---
RECEIVED BEDSIDE REPORT FROM VISITING NURSE RN. PT SLEEPING IN BED, AROUSABLE BY VOICE. AOX4, NO S/S OF DISTRESS NOTED AT THIS TIME. NO C/O PAIN OR DISCOMFORT AT THIS TIME. RLE CELLULITIS, DRESSING C/D/I. IV SITE PATENT AND ASYMPTOMATIC, ON SL PER MD ORDERS. PT IS AMBULATORY WITH MINIMAL ASSIST. ALL SAFETY PRECAUTIONS IN PLACE, WILL CONTINUE TO MONITOR.
[2018-06-21 07:28] LABS: MAGNESIUM 1.6 mg/dL (1.8-2.4); PHOSPHORUS 3.3 mg/dL (2.5-4.9)
[2018-06-21 07:35] LABS: ANION GAP 8.1 (8-16); CARBON DIOXIDE 26.8 mmol/L (21-32); CREATININE 0.9 mg/dL (0.7-1.3); POTASSIUM 3.9 mmol/L (3.5-5.1)
[2018-06-21 08:00] VITALS: BP 123/73
[2018-06-21] MEDS: ALGINATE DRESSING MC SCH (09:00)
[2018-06-21] MEDS ORDERED: FUROSEMIDE 40 MG/4 ML VIAL IVP SCH (09:00)
[2018-06-21] MEDS ORDERED: MAG SULF 2000 MG/WATER PREMIX 50 ML IV SCH (09:00)
[2018-06-21] MEDS: PANTOPRAZOLE 40 MG INJ VIAL IVP SCH (09:36)
[2018-06-21] MEDS: TAMSULOSIN 0.4 MG CAP PO SCH (09:37)
[2018-06-21] MEDS: ASCORBIC ACID 500 MG TAB PO SCH ×2 (09:37→20:47)
[2018-06-21] MEDS: LACTOBACILLUS RHAMNOSUS GG 1 EACH CAP PO SCH (09:37)
[2018-06-21] MEDS: ZINC SULF 220 MG CAP PO SCH (09:37)
--- NOTE | 2018-06-21 10:12 | NUR ---
RLE DRESSING NOT CHANGED. ORDER FOR Q3D DRESSING CHANGE. DRESSING WAS CHANGED ON 06/20/18 DAY SHIFT. DRESSING IS C/D/I.
[2018-06-21] MEDS: ALBUTEROL SULFATE/IPRATROPIU 3 ML SOL IH PRN ×2 (10:21→20:39)
[2018-06-21] MEDS ORDERED: ASCO500T45 PO (11:36)
[2018-06-21] MEDS ORDERED: TAMS0.4C96 PO (11:36)
[2018-06-21] MEDS ORDERED: ZINC220C12 PO (11:36)
[2018-06-21] MEDS ORDERED: PANT40EC PO (11:36)
[2018-06-21 12:00] VITALS: BP 126/70
--- NOTE | 2018-06-21 12:08 | NUR ---
SCHEDULED MEDICATION ADMINISTERED PER MD ORDERS. NO C/O PAIN OR DISCOMFORT AT THIS TIME. PT DENIES SOB. WILL CONTINUE TO MONITOR.
[2018-06-21] MEDS ORDERED: CLINDAMYCIN PHOS 600MG/D5W PM 50 ML IV SCH (13:00)
--- NOTE | 2018-06-21 14:32 | NUR ---
ADMINISTERED MORPHINE FOR PT C/O PAIN.
[2018-06-21 16:00] VITALS: BP 105/58
--- NOTE | 2018-06-21 17:43 | NUR ---
PT SLEEPING IN BED, RESPIRATIONS EVEN AND UNLABORED. NO S/S DISTRESS. WILL CONTINUE TO MONITOR.
--- NOTE | 2018-06-21 19:30 | NUR ---
RECEIVED FROM AM RN IN BED SLEEPING. WAKES UP WHEN TOUCHED AND CALLED BY NAME. NO SOB RT WITH 02 AT 3LPM/NC. 02 SAT AT THIS TIME IS 95%. ABLE TO VERBALIZE SIMPLE NEEDS. TELEMETRY MONITORING. DX. OF SEPSIS SECONDARY TO CELLULITIS TO RLE. CARE PLANS FOR THE NIGHT DISCUSSED WITH HIM AND CALL LIGHT WITH IN REACH. PT. ABLE TO WALK WITH HELP TO RESTROOM SITUATED INSIDE ROOM. PER AM RN PT. CAN WALK BY HIMSELF . WILL PUT BED ALARM ON.
--- NOTE | 2018-06-21 20:27 | NUR ---
PT. REQUESTING FOR PAIN PILL. WILL MEDICATE REQUESTED.
[2018-06-21 20:38] VITALS: BP 110/66
[2018-06-21] MEDS: metroNIDAZOLE 500 MG/NS PREMIX 100 ML IV SCH (20:46)
--- NOTE | 2018-06-21 21:06 | NUR ---
PT. MEDICATED WITH 2 MG. IVP DILUTED WITH NS 4 ML . PT. STATED THAT HE WAS NOT ABLE FEEL ANYTHING WHEN IT WENT IN. HE GOT UPSET AND CALLED CHARGE NURSE WHICH SHE WAS IN THE PT. ROOM AT THAT TIME GIVING ME REPORT FOR ANOTHER PT. CHARGE NURSE WITNESSED THAT I GAVE 2 MG. FROM A BOTTLE OF 4 MG. CALLED PHYSICIAN CREDENTIALING SPECIALIST TO TALK WITH HIM.
[2018-06-21] MEDS: FLUCONAZOLE 200 MG/NS PREMIX 100 ML IV SCH (22:14)
[2018-06-22] VITALS: BP 121/65
[2018-06-22] MEDS: guaiFENesin DM 200/20 MG-10 ML 10 ML UDC PO SCH ×4 (00:29→17:16)
[2018-06-22] MEDS: MORPHINE SULFATE 4 MG/ML SYR IVP PRN ×2 (00:29→08:49)
--- NOTE | 2018-06-22 01:44 | NUR ---
PT. SLEEPING WELL AFTER MORPHINE IVP ADMINISTRATION. PREFERS TO HAVE MORPHINE ADMINISTERED PURE AND FLUSHED AFTER WITH NS 10ML. GETS UPSET IF MORPHINE IS DILUTED WITH NS OR NOT PUSHED FAST. EXPLAINED PROS AND CONS. A/O X 4. MEDICATED REQUESTED. VERBALIZES WELL.
--- NOTE | 2018-06-22 03:12 | NUR ---
SLEEPING AT THIS TIME. NO RESTLESSNESS NOTED.
[2018-06-22 05:30] VITALS: BP 115/63
[2018-06-22] MEDS: metroNIDAZOLE 500 MG/NS PREMIX 100 ML IV SCH ×2 (05:37→12:15)
[2018-06-22 06:32] LABS: BASOPHILS % (AUTO) 0.5 % (0.0-2.0); EOSINOPHILS # (AUTO) 0.3 K/uL (0-0.4); HEMATOCRIT 21.4 % (36-52); HEMOGLOBIN 7.1 g/dL (12.0-18.0); LYMPHOCYTES # (AUTO) 0.7 K/uL (2.0-11.5); LYMPHOCYTES % (AUTO) 15.8 % (20.5-51.1); MEAN CORPUSCULAR HEMOGLOBIN 29 pg (27-31); MEAN CORPUSCULAR HGB CONC 33 g/dL (33-37); MEAN CORPUSCULAR VOLUME 86.9 fL (80-94); MONOCYTES # (AUTO) 0.8 K/uL (0.8-1.0); MONOCYTES % (AUTO) 16.6 % (1.7-9.3); NEUTROPHILS # (AUTO) 2.8 K/uL (1.8-7.7); NEUTROPHILS % (AUTO) 61.1 % (42.2-75.2); PLATELET COUNT (AUTO) 29 K/uL (140-450); RED BLOOD CELL COUNT(AUTO) 2.46 MIL/uL (4.20-6.10); RED CELL DISTRIBUTION WIDTH 16.9 % (11.6-13.7); WHITE BLOOD COUNT (AUTO) 4.6 K/uL (4.8-10.8)
--- NOTE | 2018-06-22 06:58 | NUR ---
PT. SLEEPING AT THIS TIME. REFUSED PAIN RELIEVER OFFERED EARLIER. NO RESTLESSNESS.
[2018-06-22 07:36] LABS: ANION GAP 9.2 (8-16); CARBON DIOXIDE 29.8 mmol/L (21-32); CREATININE 0.7 mg/dL (0.7-1.3)
--- NOTE | 2018-06-22 07:36 | NUR ---
ENDORSED TO THE NEXT RN FOR CONTINUITY OF CARE. SLEEPING. TELEMETRY MONITORING. ABLE TO VERBALIZE NEEDS WELL. ROM X 4.
[2018-06-22 07:46] LABS: MAGNESIUM 1.7 mg/dL (1.8-2.4); PHOSPHORUS 3.6 mg/dL (2.5-4.9)
--- NOTE | 2018-06-22 07:50 | NUR ---
PATIENT WAS SLEEPING COMFORTABLY, EASILY AROUSABLE BY NAME. RESPIRATION EVEN, UNLABOR ON 3L NC. SKIN DRY AND WARM. IV PATENT AND INTACT. COMPLAINED OF BACK PAIN, AND STOMACH PAIN, THROBBING AND SHARP, 8/10, WILL MEDICATE PER ORDER. PLAN OF CARE WAS DISCUSSED WITH PATIENT. BED AT LOW POSITION, SIDE RAILS UP. CALL LIGHT WITHIN REACH
--- NOTE | 2018-06-22 07:56 | NUR ---
ATTEMPTED TO ADMINISTER PRN BREATHING TX PT STATES HE DOES NOT WANT IT AND WANTS TO EAT. SPO2 ON 3L 95%. RR LOW 20'S WILL CONTINUE TO MONITOR. Addendum: 06/22/18 at 0758 by Riky Jefferson RT BENEFITS/INDICATIONS EXPLAINED TO PT AND PT STILL REFUSED.
[2018-06-22 08:00] VITALS: BP 125/64
[2018-06-22] MEDS: ZINC SULF 220 MG CAP PO SCH (08:48)
[2018-06-22] MEDS: LACTOBACILLUS RHAMNOSUS GG 1 EACH CAP PO SCH (08:48)
[2018-06-22] MEDS: TAMSULOSIN 0.4 MG CAP PO SCH (08:48)
[2018-06-22] MEDS: ASCORBIC ACID 500 MG TAB PO SCH (08:49)
[2018-06-22] MEDS ORDERED: PANTOPRAZOLE 40 MG TABEC PO SCH (09:00)
--- NOTE | 2018-06-22 10:00 | NUR ---
PATIENT WAS SLEEPING COMFORTABLY. RESPIRATION EVEN, UNLABOR ON 3L NC. NO DISTRESS NOTED AT THIS TIME. GOLF MANAGER WAS REMOVED PER ORDER. CALL LIGHT WITHIN REACH
[2018-06-22] MEDS: ALGINATE DRESSING MC SCH (11:00)
--- NOTE | 2018-06-22 11:00 | NUR ---
WOUND DRESSING WAS CHANGED PER ORDER. NO SIGN OF INFECTION SEEN. PATIENT TOLERATED WELL
--- NOTE | 2018-06-22 11:07 | NUR ---
PATIENT ASSESSMENT DONE REVIEWED CHEST CT DATED 06/20/18 HHN PRN THERAPY GIVEN A THIS TIME
[2018-06-22] MEDS: ALBUTEROL SULFATE/IPRATROPIU 3 ML SOL IH PRN (11:09)
--- NOTE | 2018-06-22 12:00 | NUR ---
PATIENT WAS SLEEPING COMFORTABLY, EASILY AROUSABLE BY NAME. RESPIRATION EVEN, UNLABOR ON 3L NC. MEDS WERE GIVEN PER ORDER. NO DISTRESS NOTED AT THIS TIME. CALL LIGHT WITHIN REACH
[2018-06-22] MEDS ORDERED: MORPHINE SULFATE 4 MG/ML SYR IVP PRN (12:15)
--- NOTE | 2018-06-22 12:45 | NUR ---
DR. BAUTISTA WAS MADE AWARE OF PATIENT'S MAG LEVEL 1.7, AND PATIENT NEEDS A UPDATED POLST.
[2018-06-22] MEDS ORDERED: MAG SULF 2000 MG/WATER PREMIX 50 ML IV SCH (13:00)
[2018-06-22 13:07] LABS: BASOPHILS % (AUTO) 0.5 % (0.0-2.0); EOSINOPHILS # (AUTO) 0.2 K/uL (0-0.4); EOSINOPHILS % (AUTO) 4.7 % (0.0-4.0); HEMATOCRIT 23.3 % (36-52); HEMOGLOBIN 7.6 g/dL (12.0-18.0); LYMPHOCYTES # (AUTO) 0.6 K/uL (2.0-11.5); LYMPHOCYTES % (AUTO) 13.2 % (20.5-51.1); MEAN CORPUSCULAR HEMOGLOBIN 29 pg (27-31); MEAN CORPUSCULAR HGB CONC 33 g/dL (33-37); MEAN CORPUSCULAR VOLUME 88.3 fL (80-94); MONOCYTES # (AUTO) 0.6 K/uL (0.8-1.0); MONOCYTES % (AUTO) 14.1 % (1.7-9.3); NEUTROPHILS # (AUTO) 2.8 K/uL (1.8-7.7); NEUTROPHILS % (AUTO) 67.5 % (42.2-75.2); PLATELET COUNT (AUTO) 57 K/uL (140-450); RED BLOOD CELL COUNT(AUTO) 2.64 MIL/uL (4.20-6.10); RED CELL DISTRIBUTION WIDTH 17.1 % (11.6-13.7); WHITE BLOOD COUNT (AUTO) 4.2 K/uL (4.8-10.8)
[2018-06-22] MEDS ORDERED: FUROSEMIDE 20 MG/2 ML VIAL IVP SCH (14:30)
--- NOTE | 2018-06-22 14:30 | NUR ---
PATIENT WAS SLEEPING COMFORTABLY, EASILY AROUSABLE BY NAME. RESPIRATION EVEN, UNLABOR ON ROOM AIR. NO DISTRESS NOTED AT THIS TIME. PATIENT COMPLAINED OF PAIN ON THE BACK AND ABDOMEN 12/16 AND REQUESTED "PAIN SHOT", WILL MEDICATE PER ORDER.
[2018-06-22 14:36] VITALS: BP 109/67
--- NOTE | 2018-06-22 15:48 | NUR ---
PATIENT IS SLEEPING, EASILY TO AROUSED BY NAME. RESPIRATION EVEN AND UNLABOR ON 3L OF O2 VIA NC. NO DISTRESS NOTED. CALL LIGHT WITHIN REACH.
--- NOTE | 2018-06-22 15:57 | NUR ---
Auth Specialist Note: Per Celso from [facility] , patient has been accepted, room 34A, accepting physician is , patient's nurse Candida made aware. Celso is aware patient is homeless and is on isolation for MRSA (wound). I provided RN Candida with authorization for [facility] [id number]. Per Professor Of Law Jessica, patient is on isolation for MRSA (wound). I called and spoke with Professor Of Law Portia from [place] ext [phone], I informed her patient has been accepted at [facility] and plan is to transfer patient to that facility today. Per Portia, she will contact [facility] and provide them with snf authorization.
[2018-06-22] MEDS ORDERED: DEXT5SYR3 PO (16:24)
[2018-06-22] MEDS ORDERED: Alginate Dressing MC (16:24)
[2018-06-22] MEDS ORDERED: CEFT1SOL1 IV (16:50)
[2018-06-22] MEDS ORDERED: METR250T2 PO (16:51)
[2018-06-22] MEDS ORDERED: FLUC100T IV (16:54)
--- NOTE | 2018-06-22 17:30 | NUR ---
PATIENT WAS SLEEPING COMFORTABLY. RESPIRATION EVEN, UNLABOR ON 3L NC. NO DISTRESS NOTED AT THIS TIME
[2018-06-22] MEDS ORDERED: MAGN200T12 PO (17:41)
[2018-06-22] MEDS ORDERED: MAGNESIUM OXIDE 400 MG TAB PO ONE (17:50)
--- NOTE | 2018-06-22 18:00 | NUR ---
CALLED AND GAVE REPORT TO MAGALYS AT [facility]. PATIENT DOES NOT HAVE FAMILY MEMBER TO NOTIFY PER PATIENT.
--- NOTE | 2018-06-22 18:40 | NUR ---
DISCHARGE INSTRUCTION WAS GIVEN AND EXPLAINED TO PATIENT. PATIENT VERBALIZED UNDERSTANDING. WOUND PICTURE WAS TAKEN. VACCINATIONS WERE UP TO DATE.
--- NOTE | 2018-06-22 18:55 | NUR ---
REPORT WAS GIVEN TO EMT AT BEDSIDE. PATIENT WAS AWAKE, ALERT. NO DISTRESS NOTED AT THIS TIME. ALL BELONGINGS WERE TAKEN WITH EMT AND PATIENT. PATIENT IS STABLE AT THIS TIME
== END 2018-06-22 18:50 | DRG 720 ==
LOC: MED 16:26 → MTU 20:56
PROVIDERS: ADMIT General Practice; ATTEND General Practice
DX: A41.9 Sepsis, unspecified organism (principal); J69.0 Pneumonitis due to inhalation of food and vomit; E43 Unspecified severe protein-calorie malnutrition; J90 Pleural effusion, not elsewhere classified; D69.6 Thrombocytopenia, unspecified; E83.39 Other disorders of phosphorus metabolism; D62 Acute posthemorrhagic anemia; R18.8 Other ascites; R65.20 Severe sepsis without septic shock; E83.42 Hypomagnesemia; E83.51 Hypocalcemia; Q78.0 Osteogenesis imperfecta; K92.2 Gastrointestinal hemorrhage, unspecified; M48.55XA Collapsed vertebra, not elsewhere classified, thoracolumbar region, initial encounter for fracture; E87.1 Hypo-osmolality and hyponatremia; K74.60 Unspecified cirrhosis of liver; L03.115 Cellulitis of right lower limb; B19.20 Unspecified viral hepatitis C without hepatic coma; B95.0 Streptococcus, group A, as the cause of diseases classified elsewhere; J44.9 Chronic obstructive pulmonary disease, unspecified; B37.49 Other urogenital candidiasis; N13.6 Pyonephrosis; F15.10 Other stimulant abuse, uncomplicated; K52.9 Noninfective gastroenteritis and colitis, unspecified; F12.90 Cannabis use, unspecified, uncomplicated; Z68.22 Body mass index [BMI] 22.0-22.9, adult; Z79.2 Long term (current) use of antibiotics; Z79.899 Other long term (current) drug therapy; Z87.442 Personal history of urinary calculi; Z59.0 Homelessness; Z91.19 Patient's noncompliance with other medical treatment and regimen
CPT/HCPCS: 36415; 71045; 71270; 73590; 76604; 76700; 80048; 80053; 80202; 80305; 81001; 82140; 82150; 82607; 82728; 82746; 83036; 83540; 83605; 83690; 83735; 83880; 84100; 84439; 84443; 84484; 85018; 85025; 85045; 85610; 85730; 87040; 87070; 87081; 87086; 87186; 93005; 93970; 93971; 94640; 96365; 96366; 96375; 97110; 97116; 97530; 99291; A4649; C9113; J0696; J1450; J1940; J2270; J2405; J2543; J2916; J3010; J3370; J3475; J3490; J7030; J7060; J7620; Q0092

== ENCOUNTER 2018-10-03 00:33 | Emergency (ER) | payer OTHER ==
[~2018-10-03] VITALS: Ht 144.8 cm; Wt 45.4 kg
[~2018-10-03 00:33] MED LIST changes: -ACET-9529 PO; +ASCO500T45 PO; +Alginate Dressing MC; -BACTNA NS; +CEFT1SOL1 IV; -CHLO118S2 TP; +DEXT5SYR3 PO; +FLUC100T IV; +METR250T2 PO; +PANT40EC PO; +TAMS0.4C96 PO; -VANC750P9 IV; +ZINC220C12 PO
[2018-10-03 00:35] VITALS: BP 135/80
--- NOTE | 2018-10-03 00:35 | NUR ---
TO BED #07 AMBULATORY
--- NOTE | 2018-10-03 00:55 | NUR ---
PT TO ED WITH C/O RT LEG REDNESS INCREASING OVER 3 MONTHS. AREA IS REDDENED AND PAINFUL TO TOUCH. PT IS AMBULATORY WITHOUT DIFFICULTY. PT PLACED INTO BED, PENDING MD TRUJILLO.
[2018-10-03] MEDS ORDERED: BACITRACIN OINT 500 UNITS/GM PKT TP ONE ×2 (01:15→01:23)
--- NOTE | 2018-10-03 01:16 | NUR ---
WOUND CARE PROVIDED TO RT LEG, BACITRACIN APPLIED, WRAPPED WITH SONIA WRAP AND NON ADHERENT DRESSING.
[2018-10-03 01:25] VITALS: BP 135/80
--- NOTE | 2018-10-03 01:26 | NUR ---
Patient discharged with v/s stable. Written and verbal after care instructions given and explained. Patient alert, oriented and verbalized understanding of instructions. Ambulatory with steady gait. All questions addressed prior to discharge. ID band removed. Patient advised to follow up with PMD. Rx of BACITRACIN, MUPROCIN CREAM given. Patient educated on indication of medication including possible reaction and side effects. Opportunity to ask questions provided and answered.
== END 2018-10-03 01:26 | disposition home or self-care (01) ==
LOC: MED 00:33
DX: F42.4 Excoriation (skin-picking) disorder (principal); M79.604 Pain in right leg; R60.0 Localized edema; J44.9 Chronic obstructive pulmonary disease, unspecified; Z87.442 Personal history of urinary calculi; Z59.0 Homelessness; Z79.899 Other long term (current) drug therapy
CPT/HCPCS: 99283